=== PATIENT | female | born 1985 | race Caucasian/White ===

== ENCOUNTER 2016-08-21 17:16 | Emergency (ER) | payer OTHER ==
[~2016-08-21 17:16] MED LIST: CIPRO250 M1 PO
[2016-08-21 18:18] LABS: URINE SOURCE CLEAN CATCH
[2016-08-21 18:22] LABS: URINE APPEARANCE CLEAR; URINE BILIRUBIN NEG (NEG); URINE BLOOD NEG (NEG); URINE COLOR YELLOW; URINE GLUCOSE NEG (NORM); URINE KETONE NEG (NEG); URINE LEUKOCYTE ESTERASE NEG (NEG); URINE NITRATE NEG (NEG); URINE PROTEIN NEG (NEG); URINE SPECIFIC GRAVITY >=1.030 (1.003-1.035); URINE UROBILINOGEN 0.2 MG/DL (NORM)
[2016-08-21 18:23] LABS: MICRO INDICATED? NO
[2016-08-21] MEDS ORDERED: DOCUSATE SODIU100 MG PO (18:39)
[2016-08-21] MEDS ORDERED: BENTYL20 MG PO (18:40)
== END 2016-08-21 18:41 | disposition home or self-care (01) ==
LOC: SED 17:16
PROVIDERS: Emergency Medicine
DX: K59.00 Constipation, unspecified (principal); F17.200 Nicotine dependence, unspecified, uncomplicated; Z98.890 Other specified postprocedural states; Z88.0 Allergy status to penicillin; Z79.899 Other long term (current) drug therapy
CPT/HCPCS: 81003; 84703; 99284